=== PATIENT | female | born 1960 | race Caucasian/White ===

== ENCOUNTER → 2020-04-17 15:25 | Outpatient (CLI) | payer OTHER, SELFPAY ==
--- NOTE | ~2020-04-17 | XR_ITS ---
XR chest 2V DATE: 04/17/2020 15:44 INDICATION: Cough. Tobacco use. TECHNIQUE: 2 views COMPARISON: None FINDINGS: Normal heart size. No hilar or mediastinal enlargement. No pulmonary infiltrate or consolid ation, pleural effusion or pulmonary vascular congestion or pneumothorax. Aortic arch calcification. Moderate osteopenia. Mild degenerative spurring of the thoracic and lumbar spine. IMPRESSION: No active cardiopulmonary disease Aortic calcification Reviewed, dictated and finalized at location A.
== END ==
PROVIDERS: PCP Emergency Medicine; Visit Provider Emergency Medicine
DX: R05 Cough (principal); Z72.0 Tobacco use; I70.0 Atherosclerosis of aorta
CPT/HCPCS: 71046

== ENCOUNTER 2021-05-19 14:11 | Outpatient (CLI) | payer OTHER, SELFPAY ==
--- NOTE | ~2021-05-19 | CT_ITS ---
EXAMINATION: CT abdomen pelvis wo/w con DATE: 05/19/2021 15:07 INDICATION: Microscopic hematuria. TECHNIQUE: Computed tomography (CT) of the abdomen and pelvis was performed without and with intraven ous contrast using a total of 130 mL Omnipaque-350 intravenous contrast with a double-bolus technique for simultaneous opacification of the renal parenchyma and renal collecting system. Automated exposu re control and iterative reconstruction technique were employed. The dose-length product was 1889.45 mGy-cm. COMPARISON: None FINDINGS: The visualized portions of the lung bases demonstrate mild atelectasis. No pleural effusion. The hear t size is normal. There are coronary artery calcifications. No pericardial effusion. Calcified medias tinal lymph nodes are consistent with old granulomatous disease. There is a 5 mm cyst in the liver. T he gallbladder, spleen, pancreas, and adrenal glands are normal. There are 6 mm and 7 mm cysts in rig ht kidney. There is a 2 mm stone in right kidney. Right ureter is not well opacified distally, but is normal. Left ureter is well opacified and is normal. The bladder is not well distended. There is div erticulosis of the colon without evidence of diverticulitis. There are no dilated loops of bowel. The appendix is normal. There are no pathologically enlarged lymph nodes. There is no free intraperitone al fluid. Pelvic floor relaxation is noted. There is a total left hip arthroplasty. There is moderate lumbar spondylosis. IMPRESSION: 1. 2 mm nonobstructing right kidney stone. Reviewed, dictated and finalized at location A.
[2021-05-19 14:55] LABS: Estimated Glomerular Filt Rate > 60
== END 2021-05-19 14:12 | disposition home or self-care (01) ==
LOC: ANHIMG 14:17
PROVIDERS: PCP Emergency Medicine; Visit Provider Nurse Practitioner
DX: R31.29 Other microscopic hematuria (principal); N20.0 Calculus of kidney
CPT/HCPCS: 74178; Q9967

== ENCOUNTER 2021-06-23 13:54 | Outpatient (CLI) | payer OTHER, SELFPAY ==
--- NOTE | ~2021-06-23 | MM_ITS ---
EXAMINATION: MM screening ellis BI w clarke HISTORY: Screening mammogram, family history of breast cancer in her mother. TECHNIQUE: Craniocaudal and mediolateral oblique 3-D tomosynthesis images were obtained and synthetic 2-D images were generated. CAD analysis was submitted and interpreted. COMPARISON: No prior mammogram is available for comparison at this institution. BREAST PARENCHYMAL COMPOSITION: The breasts are heterogeneously dense, which may obscure small masses . FINDINGS: RIGHT BREAST: There is no evidence of suspicious mass, calcification, or architectural distortion to suggest malignancy. LEFT BREAST: There is asymmetry in the subareolar aspect of the left breast on the craniocaudal view. IMPRESSION: 1. Left breast asymmetry on the craniocaudal view which may represent the patient's baseline however no comparison is currently available. 2. Comparison with prior mammograms is necessary. BI-RADS Category 0: Incomplete: Needs comparison with prior mammograms. Reviewed, dictated and finalized at location A. ITY PROCESS AUDITOR IMPRESSION: 1. Left breast asymmetry on the craniocaudal view which may represent the patie nt's baseline however no comparison is currently available. 2. Comparison with prior mammograms is necessary. BI-RADS Category 0: Incomplete: Needs comparison with prior mammograms.
== END 2021-06-23 13:55 | disposition home or self-care (01) ==
LOC: ANHIMG 13:57
PROVIDERS: PCP Emergency Medicine; Visit Provider Emergency Medicine
DX: Z12.31 Encounter for screening mammogram for malignant neoplasm of breast (principal)
CPT/HCPCS: 77063; 77067

== ENCOUNTER 2021-09-07 11:00 | Emergency (ER) | payer OTHER, SELFPAY ==
--- NOTE | ~2021-09-07 | CT_ITS ---
EXAMINATION: CT abdomen pelvis w con DATE: 09/07/2021 13:38 INDICATION: Low abdominal pain. TECHNIQUE: Computed tomography (CT) of the abdomen and pelvis was performed with 100 mL Omnipaque 350 intravenous contrast. Automated exposure control and iterative reconstruction technique were employe d. The dose-length product was 691.61 mGy-cm. COMPARISON: CT abdomen and pelvis 05/19/2021 FINDINGS: The visualized portions of the lung bases demonstrate mild atelectasis. No pleural effusion . The heart size is normal. There are coronary artery calcifications. No pericardial effusion. There are cysts in the liver measuring up to 5 mm. The gallbladder, spleen, pancreas, adrenal glands, and l eft kidney are normal. There is a 7 mm cyst in right kidney. There are no dilated loops of bowel. The appendix is normal. There are no pathologically enlarged lymph nodes. There is no free intraperitone al fluid. There is a total left hip arthroplasty. There is severe lumbar spondylosis. IMPRESSION: 1. No etiology for the patient's symptoms. Reviewed, dictated and finalized at location A. PICKER
[2021-09-07 11:37] VITALS: BP 138/75; PULSE 70; RESP 18; TEMP 36.6; O2SAT 99
[2021-09-07 12:52] LABS: Basophils Absolute Auto 0.1 K/mm3 (0.0-0.1); Basophils Percent Auto 0.8 % (0.2-1.2); Eosinophils Absolute Auto 0.3 K/mm3 (0-0.3); Eosinophils Percent Auto 3.5 % (0-4.4); Hematocrit 44.4 % (37.0-47.0); Hemoglobin 14.8 g/dL (12.0-15.0); Immature Granulocyte Absolute 0.01 K/mm3 (0.00-0.031); Immature Granulocyte Percent A 0.1 % (0-0.5); Lymphocytes Absolute Auto 1.61 K/mm3 (0.9-3.2); Lymphocytes Percent Auto 21.8 % (18.3-44.2); Mean Corpuscular HGB Conc 33.3 g/dl (32-36); Mean Corpuscular Hemoglobin 32.5 pg (26-34); Mean Corpuscular Volume 97.4 fl (80-100); Mean Platelet Volume 10.5 fl (7.4-10.4); Monocytes Absolute Auto 0.7 K/mm3 (0.1-0.6); Monocytes Percent Auto 9.3 % (2.6-8.5); Neutrophils Absolute Auto 4.8 K/mm3 (1.3-6.7); Neutrophils Percent Auto 64.5 % (45.5-73.1); Platelet Count Result 203 k/mm3 (150-375); Red Blood Count 4.56 M/mm3 (4.2-5.4); Red Cell Distribution Width 12.8 % (11.5-14.5); White Blood Count 7.4 K/mm3 (4.5-10.0)
[2021-09-07 12:58] LABS: Add Urine Microscopic? YES; Appearance Urine Clear (Clear); Bacteria Urine Trace /hpf; Bilirubin Urine Negative (Negative); Blood Urine 2+ (Negative); Color Urine Straw (Yellow); Glucose Urine UA Negative (Negative); Ketones Urine Negative (Negative); Leukocyte Esterase Ur Negative LEU/UL (Negative); Mucus Urine Rare /lpf; Nitrate Urine Negative (Negative); Protein Urine Negative (Negative); Specific Grav Ur 1.006 (1.001-1.035); Urobilinogen Urine Negative mg/dL (<2.0); WBC Urine 0-3 /hpf
[2021-09-07 13:05] LABS: Anion Gap 2 mmol/L (8-16); Blood Urea Nitrogen 16 mg/dL (7-17); Carbon Dioxide 25 mmol/L (22-30); Chloride 107 mmol/L (98-107); Estimated CRCL calculation 63 ml/min; Estimated Glomerular Filt Rate > 60; Glucose 111 mg/dL (65-110); Potassium 3.9 mmol/L (3.4-5.0); Sodium 134 mmol/L (137-145)
[2021-09-07 14:22] VITALS: BP 142/81; PULSE 98; RESP 18; O2SAT 97
--- NOTE | 2021-09-07 14:29 | PC.NURSE ---
assisted provider with rectal exam.
--- NOTE | 2021-09-07 14:51 | ED.ABDPAIN ---
HPI - Abdominal Pain General Chief Complaint: Abdominal Pain Stated Complaint: abd pain Time Seen by Provider: 09/07/21 12:00 History of Present Illness HPI narrative: Patient is a 61-year-old female who presents ER with lower abdominal pain. Ongoing for couple days. Cramping that goes into her vagina and her bottom. Makes it feel like she needs to have bowel movement but she reports she only had a small nugget-like movement today. There is some yellow mucus around the stool. No blood. No tenderness around the rectum. Denies fevers or chills or sweats. Denies vaginal bleeding or discharge. Reports she is not at risk for STI she has not been sexually active since 1999. She has had a hysterectomy and does not have ovaries. Reports she recently had a endoscopy for abdominal discomfort and was told she may need a colonoscopy in the future. Her last colonoscopy was 1 year ago. She has a known polyp. No alleviating factors. No aggravating factors. Related Data Allergies Allergy/AdvReac Type Severity Reaction Status Date / Time No Known Allergies Allergy Mild Verified 08/25/10 17:38 Review of Systems Review of Systems: All systems reviewed & are unremarkable except as noted in HPI and below Constitutional: Constitutional: Denies chills, Denies fever(s) and Denies weakness ENT: Denies nasal congestion and Denies sore throat Cardiovascular: Cardiovascular: Denies chest pain, Denies rapid heart rate and Denies radiating jaw, neck or arm pain Respiratory: Respiratory: Denies cough and Denies dyspnea Gastrointestinal: Gastrointestinal: Reports abdominal pain, Reports bloating, Reports constipation, Denies nausea and Denies vomiting Genitourinary: Genitourinary: Reports hematuria (Chronic) and Denies dysuria PMFSH Past Medical History Medical History (Updated 09/07/21 @ 15:00 by Wm Gallegos MD) Diabetes GERD (gastroesophageal reflux disease) Hypertension Surgical History Surgical History (Updated 09/07/21 @ 14:54 by Wm Gallegos MD) H/O esophagogastroduodenoscopy Social History Social History (Updated 09/07/21 @ 14:54 by Wm Gallegos MD) Social History: History of tobacco use Exam Narrative: GENERAL: Well-appearing, well-nourished, and in no acute distress. HEAD: Normocephalic, atraumatic. ENT: Mucous membranes moist. CHEST: Clear to auscultation. No respiratory distress. HEART: Regular rate and rhythm. Normal peripheral pulses. ABDOMEN: Soft, mild left upper and lower quadrant discomfort without guarding, nondistended. Rectum normal appearance without thrombosed hemorrhoid, no tenderness with SABRINA with normal tone. No discernible perineal abscess. EXTREMITIES: Normal range of motion. No edema. SKIN: Warm, dry, no rash. NEURO: Alert and oriented x3. PSYCH: Normal mood and affect. Course Course Emergency Course: Patient reports pain is gone down on its own. Labs and imaging unremarkable. Recommend follow-up with her GI for further evaluation. Vital Signs Vital signs: Vital Signs Temperature 98 F 09/07/21 11:37 Pulse Rate 70 09/07/21 11:37 Respiratory Rate 18 09/07/21 11:37 Blood Pressure 138/75 09/07/21 11:37 Pulse Oximetry 99 09/07/21 11:37 Temperature 98 F 09/07/21 11:37 Pulse Rate 98 09/07/21 14:22 Respiratory Rate 18 09/07/21 14:22 Blood Pressure 142/81 H 09/07/21 14:22 Pulse Oximetry 97 09/07/21 14:22 MDM - Abdominal Pain Lab Data Result diagrams: 09/07/21 12:43 09/07/21 12:43 Labs: Lab Results 09/07/21 09/07/21 09/07/21 Range/Units 12:43 12:43 12:43 WBC 7.4 (4.5-10.0) K/mm3 RBC 4.56 (4.2-5.4) M/mm3 Hgb 14.8 (12.0-15.0) g/dL Hct 44.4 (37.0-47.0) % MCV 97.4 (80-100) fl MCH 32.5 (26-34) pg MCHC 33.3 (32-36) g/dl RDW 12.8 (11.5-14.5) % Plt Count 203 (150-375) k/mm3 MPV 10.5 H (7.4-10.4) fl Immature Gran % (Auto) 0.1 (0-0.5) % Neut %
== END 2021-09-07 15:09 | disposition home or self-care (01) ==
PROVIDERS: Emergency Provider Emergency Medicine; PCP Emergency Medicine
DX: R10.32 Left lower quadrant pain (principal); E11.9 Type 2 diabetes mellitus without complications; K21.9 Gastro-esophageal reflux disease without esophagitis; I10 Essential (primary) hypertension
CPT/HCPCS: 36415; 74177; 80048; 81001; 85025; 99284; Q9967

== ENCOUNTER → 2021-10-25 13:23 | Outpatient (CLI) | payer OTHER, SELFPAY ==
--- NOTE | ~2021-10-25 | XR_ITS ---
EXAMINATION: XR chest 2V 10/25/2021 13:36 INDICATION: Productive cough PROCEDURE: 2 view chest COMPARISON: No prior studies for comparison. FINDINGS: The lungs are clear. The cardiomediastinal silhouette is within normal limits. There are no pleural effusions. There is no pneumothorax suspected. IMPRESSION: 1: NO ACUTE CARDIOPULMONARY DISEASE. Reviewed, dictated and finalized at location A.
== END ==
PROVIDERS: PCP Emergency Medicine; Visit Provider Emergency Medicine
DX: R05.9 Cough, unspecified (principal)
CPT/HCPCS: 71046

== ENCOUNTER → 2022-06-06 12:57 | Outpatient (CLI) | payer OTHER, SELFPAY ==
--- NOTE | ~2022-06-06 | XR_ITS ---
XR chest 2V DATE: 06/06/2022 13:17 INDICATION: Productive cough and difficulty breathing for one week. Smoker. TECHNIQUE: 2 views COMPARISON: None FINDINGS: Moderate bilateral hyperinflation. No pulmonary infiltrate or consolidation, pleural effusi on or pulmonary vascular congestion or pneumothorax. Heart size is normal. Is aortic arch calcificati on. No hilar or mediastinal enlargement. Mild degenerative spurring of the thoracic and lumbar spine. IMPRESSION: Moderate hyperinflation Aortic atherosclerosis No active cardiopulmonary disease Reviewed, dictated and finalized at location A.
== END ==
PROVIDERS: PCP Emergency Medicine; Visit Provider Emergency Medicine
DX: R05.9 Cough, unspecified (principal); R91.8 Other nonspecific abnormal finding of lung field; I70.0 Atherosclerosis of aorta
CPT/HCPCS: 71046